=== PATIENT | female | born 1965 | race Caucasian/White ===

== ENCOUNTER 2025-02-09 09:31 | Emergency (ER) | payer OTHER ==
[~2025-02-09] VITALS: Ht 157.5 cm; Wt 61.0 kg
[2025-02-09 09:33] VITALS: BP 159/99; PULSE 88; TEMP 97.8; O2SAT 98
[2025-02-09 10:45] VITALS: RESP 18
[2025-02-09] MEDS: HYDROcodone/acetaminophen 10/325mg tab PO ONE (10:45)
[2025-02-09] MEDS ORDERED: CLIN300C3 PO (10:56)
--- NOTE | 2025-02-09 10:57 | Physician Documentation ---
HPI ~ General Chief Complaint: Tooth Problem Stated Complaint: TOOTH PAIN Time Seen by MD: 10:24 History of Present Illness HPI Comment 59-year-old female presents with ongoing left-sided tooth pain. States that she is already on amoxicillin for tooth abscess. She has been taking it for several days in his requesting evaluation and pain management denies any fevers or nausea vomit Medication Reconciliation Allergies: Coded Allergies: NSAIDS (Non-Steroidal Anti-Inflamma (Unverified Allergy, Unknown, 02/09/25) Scheduled Clindamycin HCl (Cleocin HCl), 1 CAP PO Q8H Review of Systems All Other Systems at this time: Reviewed and Negative ROS As stated above in the HPI, otherwise all systems are reviewed and negative. Physical Exam Vital Signs: Temperature: 97.8, Source: Oral, Heart Rate: 88, Respiratory Rate: 18, BP: 159/99, Pulse Oximetry: 98, Weight: 61.000 Oxygen Flow Rate: 0 Physical Exam General: Alert, no apparent distress. HEENT: PERRL, EOMI, no injection, moist mucous membranes. oral cavity: tooth caries and fractures thgroughout oral cavityt. notable swelling in surrounding molar tissue Neck: Full range of motion. Respiratory: Lungs clear, no respiratory distress. Psychiatric: Normal mood and affect. Skin: Normal color, warm and dry. No edema, no ecchymosis. 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 Gave her a dose of pain medicine while in the ED. patient is nontoxic appearing. we will discharge outpatient setting Differential Dx:Considerations: Include: Alveolar fracture, Alveolar osteitis, ANUG, Facial Cellulitis, Periapical abscess, Peridontal abscess, Post-extraction bleeding, Pulpitis, Tooth avulsion, Tooth eruption, Tooth Fracture, Trigeminal neuralgia, Tooth subluxation, Other Departure Disposition: 01 HOME / SELF CARE / HOMELESS Impression: Primary Impression: Dental caries Additional Impression: Dental abscess Condition: Stable Discharge Instructions: Dental Caries, Adult Referrals: NO PRIMARY CARE PROVIDER (PCP) Prescriptions Clindamycin HCl (Cleocin HCl) 300 Mg Capsule 1 CAP PO Q8H for 10 Days, #30 CAP Prov: CHUCK LANGE NP 02/09/25 Education Educated: Patient Educated regarding: diagnosis Signature Scribe Signature: Attestation: Scribed for Chuck Lange Np by Chuck Guzman NP . 02/09/25 13:43 CHUCK LANGE NP Feb 09, 2025 10:57
== END 2025-02-09 11:11 | disposition home or self-care (01) ==
LOC: ER 09:32
DX: K02.9 Dental caries, unspecified (principal); K04.7 Periapical abscess without sinus; Z88.6 Allergy status to analgesic agent
CPT/HCPCS: 99283